=== PATIENT | male | born 1965 | race Caucasian/White ===

== ENCOUNTER 2019-09-08 08:58 | Inpatient (IN) | payer BC, OTHER ==
[2019-09-08 10:46] VITALS: BMI 28.3
--- NOTE | 2019-09-08 11:56 | BHS.RME ---
Substance Use & Tx History - Substance Use History Opiates (Heroin) Substance amount: heroin Frequency of use: Daily Substance route: Inhalation (ex: sniffing or snorting) - Last Treatment Date of last treatment: 2014 Treatment type: Medical Where was last treatment: Detox Physical/Psych/Mental Status - Behavior General Behavior: Increased activity (restlessness, agitation) Eye Contact: Normal - Cooperativeness Cooperativeness: Cooperative - Thinking Thought Processes: Logical, Goal Directed Thought content: Future oriented - Physical Health Problems Is patient presently having any pain?: Yes Does patient presently have any injuries (include location): No Does patient currently have a fever: No Is patient : No (NA) COWS - Scale Resting Pulse: 0= [place] 80 or Below Sweatin=Flushed/Facial Moisture Restless Observation: 3= Extraneous Movement Pupil Size: 1= Pupils >than Normal Bone or Joint Aches: 2= Severe Diffuse Aches Runny Nose/ Eye Tearin= Nasal Congestion GI Upset > 30mins: 1= Stomach Cramp Tremor Observation: 2= Slight Tremor Visible Yawning Observation: 1= 1-2x During Session Anxiety or Irritability: 2=Irritable/Anxious Goose Flesh Skin: 3=Piloerection COWS Score: 18 Treatment Recommendation - Level of Care Level of Care: Opioid Treatment Program (OTP), Acute Medical
--- NOTE | 2019-09-08 12:02 | HP ---
COWS - Scale Resting Pulse: 0= [place] 80 or Below Sweatin=Flushed/Facial Moisture Restless Observation: 3= Extraneous Movement Pupil Size: 1= Pupils >than Normal Bone or Joint Aches: 2= Severe Diffuse Aches Runny Nose/ Eye Tearin= Nasal Congestion GI Upset > 30mins: 1= Stomach Cramp Tremor Observation: 2= Slight Tremor Visible Yawning Observation: 1= 1-2x During Session Anxiety or Irritability: 2=Irritable/Anxious Goose Flesh Skin: 3=Piloerection COWS Score: 18 CIWA Score - Admission Criteria OASAS Guidelines: Admission for Medically Managed Detox: Requires at least one of the followin. CIWA greater than 12 2. Seizures within the past 24 hours 3. Delirium tremens within the past 24 hours 4. Hallucinations within the past 24 hours 5. Acute intervention needed for co occurring medical disorder 6. Acute intervention needed for co occurring psychiatric disorder 7. Severe withdrawal that cannot be handled at a lower level of care (continued vomiting, continued diarrhea, abnormal vital signs) requiring intravenous medication and/or fluids 8. Admitting History and Physical - Smoking History Smoking history: Current every day smoker Have you smoked in the past 12 months: Yes Aproximately how many cigarettes per day: 10 - Alcohol/Substance Use Hx Alcohol Use: Yes Admission ROS S - HPI Chief Complaint: I came to do detox Allergies/Adverse Reactions: Allergies Allergy/AdvReac Type Severity Reaction Status Date / Time No Known Allergies Allergy Verified 09/08/19 10:40 History of Present Illness: 54 year old man presents for heroin detox, his last treatment was in 2014. He denies h/o overdose Exam Limitations: No Limitations - Ebola screening Have you traveled outside of the country in the last 21 days: No Have you had contact with anyone from an Ebola affected area: No Have you been sick,other than usual withdrawal symptoms: No Do you have a fever: No - Review of Systems Constitutional: Chills, Loss of Appetite, Night Sweats, Weight Stable EENT: reports: Blurred Vision, Nose Congestion Respiratory: reports: SOB with Exertion Cardiac: reports: Lightheadedness GI: reports: Poor Appetite, Abdominal cramping : reports: No Symptoms Reported Musculoskeletal: reports: Back Pain, Joint Pain, Muscle Pain, Muscle Weakness Integumentary: reports: Flushing Neuro: reports: Headache, Tremors, Weakness Endocrine: reports: No Symptoms Reported Hematology: reports: No Symptoms Reported Psychiatric: reports: Anxious, Depressed Other Systems: Reviewed and Negative Patient History - Patient Medical History Hx Anemia: No Hx Asthma: Yes Hx Chronic Obstructive Pulmonary Disease (COPD): Yes Hx Cancer: No Hx Cardiac Disorders: Yes (heart murmur) Hx Congestive Heart Failure: No Hx Hypertension: No Hx Hypercholesterolemia: No Hx Pacemaker: No HX Cerebrovascular Accident: No Hx Seizures: No Hx Dementia: No Hx Diabetes: No Hx Gastrointestinal Disorders: Yes Hx Liver Disease: No Hx Genitourinary Disorders: No Hx Sexually Transmitted Disorders: No Hx Renal Disease (ESRD): No Hx Thyroid Disease: No Hx Human Immunodeficiency Virus (HIV): No Hx Hepatitis C: No Hx Depression: Yes (not on medication) Hx Suicide Attempt: No Hx Bipolar Disorder: No Hx Schizophrenia: No - Patient Surgical History Past Surgical History: Yes Hx Neurologic Surgery: No ( ) Hx Cataract Extraction: No Hx Cardiac Surgery: Yes (HEART CATH AT 14 Y/O DUE TO HEART MURMUR) Hx Lung Surgery: No Hx Breast Surgery: No Hx Breast Biopsy: No Hx Abdominal Surgery: No Hx Appendectomy: No Hx Cholecystectomy: No Hx Genitourinary Surgery: No Hx Section: No Hx Orthopedic Surgery: No Other Surgical History: BENIGN FATTY DEPOSIT REMOVED FROM HEAD 1980s Anesthesia Reaction: No - PPD History Previous Implant?: Yes Documented Results: Negative w/proof Implanted On Prior [facility] Admission?: Yes Date: 08/10/14 Results: 0 mm PPD to be Administered?: Yes - Smoking Cessation Smoking history: Current every day smoker Have you smoked in the past 12 months: Yes Aproximately how many cigarettes per day: 20 Cigars Per Day: 0 Hx Chewing Tobacco Use: No Initiated information on smoking cessation: Yes 'Breaking Loose' booklet given: 09/08/19 - Substances abused Heroin Substance route: Inhalation Frequency: Daily Amount used: 4 bags Age of first use: 38 Date of last use: 09/08/19 Admission Physical Exam BHS - Vital Signs Vital Signs: Vital Signs - 24 hr 09/08/19 10:42 Temperature 97.6 F Pulse Rate 79 Respiratory 16 Rate Blood Pressure 132/84 - Physical General Appearance: Yes: Within Normal Limits HEENTM: Yes: EOMI, Hearing grossly Normal, Normocephalic, Normal Voice, Pharynx Normal Respiratory: Yes: Chest Non-Tender, Lungs Clear, Normal Breath Sounds, No Re spiratory Distress, No Accessory Muscle Use, Wheezing Neck: Yes: No masses,lesions,Nodules, Supple Breast: Yes: Breast Exam Deferred Cardiology: Yes: Regular Rhythm, Regular Rate, S1, S2 Abdominal: Yes: Normal Bowel Sounds, Non Tender Genitourinary: Yes: Within Normal Limits Back: Yes: Normal Inspection Musculoskeletal: Yes: full range of Motion, Gait Steady, Muscle weakness Extremities: Yes: Normal Range of Motion, Tremors Neurological: Yes: rug cutter II-XII NML intact, Fully Oriented, Alert, Normal Mood/Affect, Normal Response Integumentary: Yes: Moist Lymphatic: Yes: Within Normal Limits - Diagnostic (1) Cannabis dependence Current Visit: Yes Status: Chronic (2) Nicotine dependence Current Visit: No Status: Acute Qualifiers: Nicotine product type: cigarettes Substance use status: uncomplicated Qualified Code(s): F17.210 - Nicotine dependence, cigarettes, uncomplicated (3) Opioid dependence Current Visit: Yes Status: Chronic Qualifiers: Substance use status: uncomplicated Qualified Code(s): F11.20 - Opioid dependence, uncomplicated Cleared for Admission [facility] - Detox or Rehab [facility] Level of Care: Medically Managed Detox Regimen/Protocol: Methadone Claeared for Rehab Admission: No Breathalyzer - Breathalyzer Breathalyzer: 0 Urine Drug Screen - Control Is test valid?: Yes - Results Urine drug screen results: THC-Marijuana, FEN-Fentanyl, MOP-Opiates, MTD- Methadone Inpatient Rehab Admission - Rehab Decision to Admit Inpatient rehab admission?: No
[2019-09-08] MEDS ORDERED: MAGNESIUM CITRATE 300 ML BOTTLE PO PRN (12:08)
[2019-09-08] MEDS ORDERED: METHOCARBAMOL 500 MG TABLET PO PRN (12:08)
[2019-09-08] MEDS ORDERED: BISMUTH SUBSALICYLATE 524 MG/30 ML UD PO PRN (12:08)
[2019-09-08] MEDS ORDERED: IBUPROFEN 400 MG TABLET (FP) PO PRN (12:08)
[2019-09-08] MEDS ORDERED: NICOTINE POLACRILEX 2 MG GUM BUC PRN (12:08)
[2019-09-08] MEDS ORDERED: NALOXONE HCL 0.4 MG/ML VIAL IM PRN (12:08)
[2019-09-08] MEDS ORDERED: cloNIDine HCL 0.1 MG TABLET PO PRN (12:08)
[2019-09-08] MEDS ORDERED: METHADONE HCL 10 MG TABLET (FOR DETOX USE ONLY) PO ONE (12:08)
[2019-09-08] MEDS ORDERED: ACETAMINOPHEN 325 MG TABLET (FP) PO PRN ×2 (12:08)
[2019-09-08] MEDS ORDERED: MENTHOL/PHENOL 1 EACH UD MM PRN (12:08)
[2019-09-08] MEDS ORDERED: MAG HYDROX/AL HYDROX/SIMETH 30 ML UNIT-DOSE CUP PO PRN (12:08)
[2019-09-08] MEDS ORDERED: MAGNESIUM HYDROX 2400MG/30ML ORAL SUSPENSION 30 ML CUP PO PRN (12:08)
[2019-09-08] MEDS ORDERED: ALBUTEROL SO4 8 GM HFA INHALER IH PRN (12:10)
[2019-09-08] MEDS ORDERED: FLU VACCINE QUAD 60 MCG/0.5 ML (MDV 19-20) IM ONE (14:00)
[2019-09-08] MEDS ORDERED: THIAMINE HCL 100 MG TABLET (FP) PO SCH (22:00)
[2019-09-08] MEDS ORDERED: MELATONIN 5 MG TABLETS PO SCH (22:00)
[2019-09-08] MEDS: BUDESONIDE/FORMETEROL FUMARATE 160/4.5 mcg INHALER IH SCH (22:09)
[2019-09-08] MEDS ORDERED: hydrOXYzine PAMOATE 25 MG CAPSULE (FP) PO PRN (23:54)
--- NOTE | 2019-09-09 09:40 | EKG ---
Test Reason : Blood Pressure : / mmHG Vent. Rate : 066 BPM Atrial Rate : 066 BPM P-R Int : 144 ms QRS Dur : 082 ms QT Int : 390 ms P-R-T Axes : 066 061 056 degrees QTc Int : 408 ms NORMAL SINUS RHYTHM NORMAL ECG NO PREVIOUS ECGS AVAILABLE Confirmed by Fabi Shannon ([id number]) on 09/09/2019 9:39:54 AM Referred By: ARLEY SOTO Confirmed By:Fabi Shannon
[2019-09-09] MEDS ORDERED: METHADONE HCL 5 MG TABLET (FOR DETOX USE ONLY) PO ONE (10:00)
[2019-09-09] MEDS ORDERED: FLU VACCINE QUAD 60 MCG/0.5 ML (MDV 19-20) IM ONE (10:00)
[2019-09-09] MEDS ORDERED: PRENATAL VITAMINS W/ FOLIC ACID TABLET (FP) PO SCH (10:00)
[2019-09-09] MEDS ORDERED: NICOTINE 14 MG/24 HOURS TOPICAL PATCH TD SCH (10:00)
[2019-09-09 10:19] LABS: HEMATOCRIT 42.2 % (35.4-49); HEMOGLOBIN 14.3 GM/dL (11.7-16.9); MCHC 33.8 g/dl (32.0-35.9); MEAN CELL VOLUME 85.7 fl (80-96); MEAN PLT VOLUME 7.5 fl (7.5-11.1); PLATELET COUNT 376 K/MM3 (134-434); RBC 4.92 M/mm3 (4.00-5.60); RDW 14.1 % (11.9-15.9)
[2019-09-09 10:33] LABS: ALBUMIN 3.9 g/dl (3.4-5.0); BLOOD UREA NITROGEN 17.1 mg/dL (7-18); CALCIUM 9.2 mg/dL (8.5-10.1); CREATININE 0.8 mg/dL (0.55-1.3); POTASSIUM 4.6 mmol/L (3.5-5.1); TOT PROT 7.5 g/dl (6.4-8.2)
[2019-09-09] MEDS: BUDESONIDE/FORMETEROL FUMARATE 160/4.5 mcg INHALER IH SCH (11:06)
[2019-09-09] MEDS ORDERED: diazePAM 5 MG TABLET PO PRN (11:15)
--- NOTE | 2019-09-09 11:18 | PN ---
BHS COWS - Scale Resting Pulse: 0= [place] 80 or Below Sweatin= Chills/Flushing Restless Observation: 0= Sits Still Pupil Size: 1= Pupils >than Normal Bone or Joint Aches: 2= Severe Diffuse Aches Runny Nose/ Eye Tearin= Nasal Congestion GI Upset > 30mins: 2= Nausea/Diarrhea Tremor Observation of Outstretched Hands: 1= Tremor [place], Not Seen Yawning Observation: 1= 1-2x During Session Anxiety or Irritability: 1=Feels Anxious/Irritable Goose Flesh Skin: 3=Piloerection COWS Score: 13 BHS Progress Note (SOAP) Subjective: 54 years old male admitted on 09/08/19 for opiate withdrawal sx management farzaneh ting with methadone detox regiment trouble sleep at night belsomra 10 mg po x 1 requests to be seen by a psychiatrist that had long history of anxiety taking valium periodically at home begin valium prn adjunct with methadone regiment report nasal congestion from opiate withdrawal ocean spray Objective: 09/09/19 11:21 Vital Signs Temperature 97.1 F L 09/09/19 08:46 Pulse Rate 80 09/09/19 08:46 Respiratory Rate 18 09/09/19 08:46 Blood Pressure 158/97 09/09/19 08:46 O2 Sat by Pulse Oximetry (%) Laboratory Last Values WBC 10.0 K/mm3 (4.0-10.0) 09/09/19 07:50 RBC 4.92 M/mm3 (4.00-5.60) 09/09/19 07:50 Hgb 14.3 GM/dL (11.7-16.9) 09/09/19 07:50 Hct 42.2 % (35.4-49) 09/09/19 07:50 MCV 85.7 fl (80-96) 09/09/19 07:50 MCH 29.0 pg (25.7-33.7) 09/09/19 07:50 MCHC 33.8 g/dl (32.0-35.9) 09/09/19 07:50 RDW 14.1 % (11.9-15.9) 09/09/19 07:50 Plt Count 376 K/MM3 (134-434) D 09/09/19 07:50 MPV 7.5 fl (7.5-11.1) 09/09/19 07:50 Sodium 137 mmol/L (136-145) 09/09/19 07:50 Potassium 4.6 mmol/L (3.5-5.1) 09/09/19 07:50 Chloride 101 mmol/L (98-107) 09/09/19 07:50 Carbon Dioxide 29 mmol/L (21-32) 09/09/19 07:50 Anion Gap 7 MMOL/L (8-16) L 09/09/19 07:50 BUN 17.1 mg/dL (7-18) 09/09/19 07:50 Creatinine 0.8 mg/dL (0.55-1.3) 09/09/19 07:50 Est GFR (CKD-EPI)AfAm 117.38 09/09/19 07:50 Est GFR (CKD-EPI)NonAf 101.27 09/09/19 07:50 Random Glucose 96 mg/dL (74-106) 09/09/19 07:50 Calcium 9.2 mg/dL (8.5-10.1) 09/09/19 07:50 Total Bilirubin 1.0 mg/dL (0.2-1) 09/09/19 07:50 AST 33 U/L (15-37) 09/09/19 07:50 ALT 50 U/L (13-61) 09/09/19 07:50 Alkaline Phosphatase 70 U/L (45-117) 09/09/19 07:50 Total Protein 7.5 g/dl (6.4-8.2) 09/09/19 07:50 Albumin 3.9 g/dl (3.4-5.0) 09/09/19 07:50 RPR Titer Nonreactive (NONREACTIVE) 09/09/19 07:50 lab noted 09/09/19 11:23 bp elevation amlodipine 10 mg po initiated Assessment: 09/09/19 11:24 opiate withdrawal Plan: methadone regiment
[2019-09-09] MEDS ORDERED: amLODIPine BESYLATE 10 MG TABLET (FP) PO SCH (12:00)
[2019-09-09 13:22] VITALS: BP 148/92; PULSE 78; TEMP 98.1
[2019-09-09] MEDS ORDERED: SODIUM CHLORIDE NASAL SPRAY 44 ML BOTTLE NS SCH (14:00)
--- NOTE | 2019-09-09 15:50 | CONSULT ---
[facility] Psychiatric Consult - Data Date of interview: 09/09/19 Admission source: [facility] Identifying data: Patient is approached for psychiatric interview. Mr Anya declines. " I don't need to see psychiatrists. I changed my mind about detox. I am leaving. Thank you." Patient declines to discuss his reasons. Dcelines to reconsider. Nursing staff is made aware.
--- NOTE | 2019-09-09 16:22 | DS ---
[facility] Detox Discharge Summary Admission Date: 09/08/19 Discharge Date: 09/09/19 - History Present History: Opioid Dependence Additional Comments: 54 years old male admitted on 09/08/19 for opiate withdrawal sx management treated with methadone detox regiment Mr Joyner insists to leave the detox unit that "food is not good" "small space" reports that "just got out from a place" where is much bigger and food is much better patient states that he is going to "that" place now, "I take 10 mg of methadone at home every day" "I do not need to stay here" patient received flu shoot " that is what I need" patient is alert oriented x 3 no acute distress speech clearly coherently ambulating steady gait extremities full range of motion Pertinent Past History: time for discharge 45 minutes case discussed with the nurse against medical advice is appropriated - Physical Exam Results Vital Signs: Vital Signs Temperature 98.1 F 09/09/19 12:42 Pulse Rate 78 09/09/19 12:42 Respiratory Rate 18 09/09/19 12:42 Blood Pressure 148/92 09/09/19 12:42 O2 Sat by Pulse Oximetry (%) Pertinent Admission Physical Exam Findings: opiate withdrawal Vital Signs Temperature 98.1 F 09/09/19 12:42 Pulse Rate 78 09/09/19 12:42 Respiratory Rate 18 09/09/19 12:42 Blood Pressure 148/92 09/09/19 12:42 O2 Sat by Pulse Oximetry (%) Laboratory Last Values WBC 10.0 K/mm3 (4.0-10.0) 09/09/19 07:50 RBC 4.92 M/mm3 (4.00-5.60) 09/09/19 07:50 Hgb 14.3 GM/dL (11.7-16.9) 09/09/19 07:50 Hct 42.2 % (35.4-49) 09/09/19 07:50 MCV 85.7 fl (80-96) 09/09/19 07:50 MCH 29.0 pg (25.7-33.7) 09/09/19 07:50 MCHC 33.8 g/dl (32.0-35.9) 09/09/19 07:50 RDW 14.1 % (11.9-15.9) 09/09/19 07:50 Plt Count 376 K/MM3 (134-434) D 09/09/19 07:50 MPV 7.5 fl (7.5-11.1) 09/09/19 07:50 Sodium 137 mmol/L (136-145) 09/09/19 07:50 Potassium 4.6 mmol/L (3.5-5.1) 09/09/19 07:50 Chloride 101 mmol/L (98-107) 09/09/19 07:50 Carbon Dioxide 29 mmol/L (21-32) 09/09/19 07:50 Anion Gap 7 MMOL/L (8-16) L 09/09/19 07:50 BUN 17.1 mg/dL (7-18) 09/09/19 07:50 Creatinine 0.8 mg/dL (0.55-1.3) 09/09/19 07:50 Est GFR (CKD-EPI)AfAm 117.38 09/09/19 07:50 Est GFR (CKD-EPI)NonAf 101.27 09/09/19 07:50 Random Glucose 96 mg/dL (74-106) 09/09/19 07:50 Calcium 9.2 mg/dL (8.5-10.1) 09/09/19 07:50 Total Bilirubin 1.0 mg/dL (0.2-1) 09/09/19 07:50 AST 33 U/L (15-37) 09/09/19 07:50 ALT 50 U/L (13-61) 09/09/19 07:50 Alkaline Phosphatase 70 U/L (45-117) 09/09/19 07:50 Total Protein 7.5 g/dl (6.4-8.2) 09/09/19 07:50 Albumin 3.9 g/dl (3.4-5.0) 09/09/19 07:50 RPR Titer Nonreactive (NONREACTIVE) 09/09/19 07:50 lab noted - Treatment Hospital Course: Detox Protocol Followed Patient has Accepted a Rehab Referral to: [facility] - Medication Discharge Medications: Ambulatory Orders Albuterol Sulfate Inhaler - [Ventolin HFA Inhaler -] 2 inh PO Q4H PRN 02/28/14 Budesonide/Formeterol Fumarate [SYMBICORT 160/4.5mcg -] 1 inh PO BID 10/09/14 - Diagnosis (1) Opioid dependence Current Visit: Yes Status: Acute Qualifiers: Substance use status: uncomplicated Qualified Code(s): F11.20 - Opioid dependence, uncomplicated (2) Nicotine dependence Current Visit: Yes Status: Acute Qualifiers: Nicotine product type: cigarettes Substance use status: in withdrawal Qualified Code(s): F17.213 - Nicotine dependence, cigarettes, with withdrawal (3) Asthma Current Visit: Yes Status: Chronic Qualifiers: Asthma severity: mild Asthma persistence: intermittent Asthma complication type: with status asthmaticus Qualified Code(s): J45.22 - Mild intermittent asthma with status asthmaticus (4) Substance induced mood disorder Current Visit: Yes Status: Suspected - AMA Did Patient Leave Against Medical Advice: Yes
[2019-09-09] MEDS ORDERED: SUVOREXANT 10 MG TABLET PO ONE (22:00)
[2019-09-10] MEDS ORDERED: diazePAM 5 MG TABLET PO PRN (00:01)
[2019-09-10] MEDS ORDERED: METHADONE HCL 10 MG TABLET (FOR DETOX USE ONLY) PO ONE (10:00)
[2019-09-11] MEDS ORDERED: METHADONE HCL 5 MG TABLET (FOR DETOX USE ONLY) PO ONE (06:00)
== END 2019-09-09 16:50 | disposition left against medical advice (07) | DRG 770 ==
LOC: YASAS 08:58 → UNDOADMIN 11:48 → Y3N 11:48
PROVIDERS: ADMIT Allergy & Immunology; ATTEND Allergy & Immunology
PROC: HZ2ZZZZ Detoxification Services for Substance Abuse Treatment (ICD-10-PCS; principal; 2019-09-08)
DX: F11.23 Opioid dependence with withdrawal (principal); F12.20 Cannabis dependence, uncomplicated; F17.210 Nicotine dependence, cigarettes, uncomplicated; F19.24 Other psychoactive substance dependence with psychoactive substance-induced mood disorder; J45.22 Mild intermittent asthma with status asthmaticus
CPT/HCPCS: 36415; 80053; 85027; 86593; 93005; 93010; Q2036

== ENCOUNTER 2020-07-29 12:59 | Inpatient (IN) | payer OTHER ==
[2020-07-29 15:12] VITALS: BMI 27.9
[2020-07-29] MEDS ORDERED: ALBUTEROL SO4 HFA INHALER IH PRN (17:54)
[2020-07-29] MEDS ORDERED: cloNIDine HCL 0.1 MG TABLET PO PRN (17:55)
[2020-07-29] MEDS ORDERED: IBUPROFEN 400 MG TABLET (FP) PO PRN (17:55)
[2020-07-29] MEDS ORDERED: MAG HYDROX/AL HYDROX/SIMETH 30 ML UNIT-DOSE CUP PO PRN (17:55)
[2020-07-29] MEDS ORDERED: ONDANSETRON *ODT* 4 MG TABLET SL PRN (17:55)
[2020-07-29] MEDS ORDERED: MAGNESIUM CITRATE 300 ML BOTTLE PO PRN (17:55)
[2020-07-29] MEDS ORDERED: MENTHOL/PHENOL 1 EACH UD MM PRN (17:55)
[2020-07-29] MEDS ORDERED: ACETAMINOPHEN 325 MG TABLET (FP) PO PRN ×2 (17:55)
[2020-07-29] MEDS ORDERED: METHOCARBAMOL 500 MG TABLET PO PRN (17:55)
[2020-07-29] MEDS ORDERED: METHADONE HCL 10 MG TABLET (FOR DETOX USE ONLY) PO ONE (17:55)
[2020-07-29] MEDS ORDERED: guaiFENesin 200 MG/10 ML 10 ML UNIT-DOSE CUPS PO PRN (17:55)
[2020-07-29] MEDS ORDERED: DICYCLOMINE HCL 10 MG CAPSULE PO PRN (17:55)
[2020-07-29] MEDS ORDERED: P-EPHED 60MG/TRIPROLIDI 2.5MG TABLET PO PRN (17:55)
[2020-07-29] MEDS ORDERED: MAGNESIUM HYDROX 2400MG/30ML ORAL SUSPENSION 30 ML CUP PO PRN (17:55)
[2020-07-29] MEDS ORDERED: hydrOXYzine PAMOATE 25 MG CAPSULE (FP) PO PRN (17:55)
[2020-07-29] MEDS ORDERED: NICOTINE POLACRILEX 2 MG GUM BUC PRN (17:55)
[2020-07-29] MEDS ORDERED: BISMUTH SUBSALICYLATE 524 MG/30 ML UD PO PRN (17:55)
[2020-07-29] MEDS ORDERED: MELATONIN 5 MG TABLETS PO SCH (22:00)
[2020-07-29] MEDS ORDERED: THIAMINE HCL 100 MG TABLET (FP) PO SCH (22:00)
[2020-07-29] MEDS ORDERED: BUDESONIDE/FORMETEROL FUMARATE 160/4.5 mcg INHALER IH SCH (22:00)
[2020-07-30 09:25] VITALS: BP 151/93; PULSE 73; TEMP 96.9
[2020-07-30] MEDS ORDERED: TIOTROPIUM BROMIDE 2.5 MCG (SPIRIVA) RESPIMAT INHALER IH SCH (10:00)
[2020-07-30] MEDS ORDERED: PRENATAL VITAMINS W/ FOLIC ACID TABLET (FP) PO SCH (10:00)
[2020-07-30] MEDS ORDERED: NICOTINE 14 MG/24 HOURS TOPICAL PATCH TD SCH (10:00)
[2020-07-30] MEDS ORDERED: METHADONE (DETOX) 20 MG, METHADONE (DETOX) 5 MG PO ONE (10:00)
[2020-07-30 12:28] LABS: HEMATOCRIT 40.7 % (35.4-49); HEMOGLOBIN 13.5 GM/dL (11.7-16.9); MCH 28.7 pg (25.7-33.7); MCHC 33.1 g/dl (32.0-35.9); MEAN CELL VOLUME 86.8 fl (80-96); MEAN PLT VOLUME 8.5 fl (7.5-11.1); PLATELET COUNT 329 K/MM3 (134-434); RBC 4.69 M/mm3 (4.00-5.60); RDW 15.6 % (11.9-15.9); WHITE BLOOD COUNT 7.8 K/mm3 (4.0-10.0)
[2020-07-30 12:29] LABS: POTASSIUM 4.1 mmol/L (3.5-5.1)
[2020-07-30 12:34] LABS: ALBUMIN 3.8 g/dl (3.4-5.0); BLOOD UREA NITROGEN 21.7 mg/dL (7-18); CALCIUM 9.1 mg/dL (8.5-10.1)
[2020-07-30 12:39] LABS: BILIRUBIN,TOTAL 0.9 mg/dL (0.2-1); TOT PROT 7.3 g/dl (6.4-8.2)
[2020-07-30 14:49] LABS: URINE APPEARANCE CLEAR; URINE BILIRUBIN NEGATIVE (NEGATIVE); URINE COLOR YELLOW; URINE GLUCOSE (UA) NEGATIVE (NEGATIVE); URINE KETONE NEGATIVE (NEGATIVE); URINE LEUK ESTERASE NEGATIVE (NEGATIVE); URINE NITRITE NEGATIVE (NEGATIVE); URINE PROTEIN NEGATIVE (NEGATIVE); URINE UROBILINOGEN 0.2 mg/dL (0.2-1.0)
[2020-07-31] MEDS ORDERED: METHADONE HCL 10 MG TABLET (FOR DETOX USE ONLY) PO ONE (10:00)
[2020-08-01] MEDS ORDERED: METHADONE (DETOX) 10 MG, METHADONE (DETOX) 5 MG PO ONE (10:00)
[2020-08-02] MEDS ORDERED: METHADONE HCL 10 MG TABLET (FOR DETOX USE ONLY) PO ONE (10:00)
[2020-08-03] MEDS ORDERED: METHADONE HCL 5 MG TABLET (FOR DETOX USE ONLY) PO ONE (06:00)
== END 2020-07-30 09:21 | disposition left against medical advice (07) | DRG 770 ==
LOC: YASAS 12:59 → Y3N 16:12
PROVIDERS: ADMIT Allergy & Immunology; ATTEND Allergy & Immunology
PROC: HZ2ZZZZ Detoxification Services for Substance Abuse Treatment (ICD-10-PCS; principal; 2020-07-29)
DX: F11.23 Opioid dependence with withdrawal (principal); F13.20 Sedative, hypnotic or anxiolytic dependence, uncomplicated; F12.20 Cannabis dependence, uncomplicated; F17.210 Nicotine dependence, cigarettes, uncomplicated; F19.282 Other psychoactive substance dependence with psychoactive substance-induced sleep disorder; F19.24 Other psychoactive substance dependence with psychoactive substance-induced mood disorder; F32.9 Major depressive disorder, single episode, unspecified; I10 Essential (primary) hypertension; J44.9 Chronic obstructive pulmonary disease, unspecified; J45.20 Mild intermittent asthma, uncomplicated; K59.03 Drug induced constipation; M62.08 Separation of muscle (nontraumatic), other site; R01.1 Cardiac murmur, unspecified; R45.89 Other symptoms and signs involving emotional state
CPT/HCPCS: 36415; 80053; 81003; 85027; 86780; C9803; J0735; U0003

== ENCOUNTER 2021-03-24 12:13 | Inpatient (IN) | payer OTHER ==
[2021-03-24 13:13] VITALS: BMI 31.3
[2021-03-24] MEDS ORDERED: IBUPROFEN 400 MG TABLET (FP) PO PRN (19:56)
[2021-03-24] MEDS ORDERED: BISMUTH SUBSALICYLATE 524 MG/30 ML PO PRN (19:56)
[2021-03-24] MEDS ORDERED: NALOXONE (NARCAN) HCL 4 MG/0.1 ML SPRAY NS PRN (19:56)
[2021-03-24] MEDS ORDERED: MAGNESIUM CITRATE 300 ML BOTTLE PO PRN (19:56)
[2021-03-24] MEDS ORDERED: ONDANSETRON *ODT* 4 MG TABLET SL PRN (19:56)
[2021-03-24] MEDS ORDERED: MAG HYDROX/AL HYDROX/SIMETH 30 ML UNIT-DOSE CUP PO PRN (19:56)
[2021-03-24] MEDS ORDERED: ACETAMINOPHEN 325 MG TABLET (FP) PO PRN ×2 (19:56)
[2021-03-24] MEDS ORDERED: NICOTINE 10 MG CARTRIDGE (INHALER) IH PRN (19:56)
[2021-03-24] MEDS ORDERED: METHOCARBAMOL 500 MG TABLET PO PRN (19:56)
[2021-03-24] MEDS ORDERED: MENTHOL/PHENOL 1 EACH UD MM PRN (19:56)
[2021-03-24] MEDS ORDERED: MAGNESIUM HYDROX 2400MG/30ML ORAL SUSPENSION 30 ML CUP PO PRN (19:56)
[2021-03-24] MEDS ORDERED: NICOTINE 7 MG/24 HOURS TOPICAL PATCH TD SCH (20:00)
[2021-03-24] MEDS ORDERED: THIAMINE HCL 100 MG TABLET (FP) PO SCH (22:00)
[2021-03-24] MEDS ORDERED: MELATONIN 5 MG TABLETS PO SCH (22:00)
[2021-03-24] MEDS: hydrOXYzine PAMOATE 25 MG CAPSULE (FP) PO SCH (22:27)
[2021-03-24] MEDS: ALBUTEROL SO4 HFA INHALER IH PRN (22:40)
[2021-03-25] MEDS: ALBUTEROL SO4 HFA INHALER IH PRN (05:48)
[2021-03-25] MEDS: hydrOXYzine PAMOATE 25 MG CAPSULE (FP) PO SCH (05:48)
[2021-03-25 09:23] VITALS: BP 139/78; PULSE 79; TEMP 97.9
[2021-03-25] MEDS ORDERED: BUDESONIDE/FORMETEROL FUMARATE 160/4.5 mcg INHALER IH SCH (10:00)
[2021-03-25 10:55] LABS: HEMATOCRIT 41.2 % (35.4-49); HEMOGLOBIN 13.9 GM/dL (11.7-16.9); MCHC 33.7 g/dl (32.0-35.9); MEAN CELL VOLUME 85.8 fl (80-96); PLATELET COUNT 333 10^3/uL (134-434); RDW 15.5 % (11.9-15.9); WHITE BLOOD COUNT 7.4 K/mm3 (4.0-10.0)
[2021-03-25 11:02] LABS: CALCIUM 9.2 mg/dL (8.5-10.1)
[2021-03-25 11:03] LABS: ALBUMIN 3.5 g/dl (3.4-5.0); BLOOD UREA NITROGEN 14.1 mg/dL (7-18)
[2021-03-25 11:06] LABS: CREATININE 0.7 mg/dL (0.55-1.3)
[2021-03-25 11:08] LABS: BILIRUBIN,TOTAL 0.5 mg/dL (0.2-1); TOT PROT 7.1 g/dl (6.4-8.2)
== END 2021-03-25 09:23 | disposition home or self-care (01) | DRG 773 ==
LOC: YASAS 12:13 → Y6N 20:52
PROVIDERS: ADMIT Allergy & Immunology; ATTEND Allergy & Immunology
PROC: HZ2ZZZZ Detoxification Services for Substance Abuse Treatment (ICD-10-PCS; principal; 2021-03-24)
DX: F11.23 Opioid dependence with withdrawal (principal); F13.20 Sedative, hypnotic or anxiolytic dependence, uncomplicated; F12.20 Cannabis dependence, uncomplicated; F17.210 Nicotine dependence, cigarettes, uncomplicated; F32.9 Major depressive disorder, single episode, unspecified; I10 Essential (primary) hypertension; J43.8 Other emphysema; J45.20 Mild intermittent asthma, uncomplicated
CPT/HCPCS: 36415; 80053; 85027; 86780; C9803; U0003; U0005